=== PATIENT | male | born 1950 | race Caucasian/White ===

== ENCOUNTER → 2016-09-19 | Outpatient (CLI) | payer OTHER, BC ==
[~2016-09-19] MED LIST: LOSA1TAB38 PO; simvastin PO
--- NOTE | 2016-09-19 11:12 | DIAGNOSTIC IMAGING REPORT ---
CHEST 2 VIEWS ROUTINE CLINICAL HISTORY: R91.1 lung nodule COMPARISON STUDY: 01/26/2012 FINDINGS: The bones soft tissues and hemidiaphragms are normal. The cardiomediastinal silhouette is normal. The lungs are clear. The pulmonary vasculature is normal. IMPRESSION: Negative chest. The above report was generated using voice recognition software. It may contain grammatical, syntax or spelling errors. Electronically signed by: Pérez Gu M.D. 09/19/2016 11:11 AM Dictated Date/Time: 09/19/2016 11:10 AM
--- NOTE | 2016-09-20 07:49 | DIAGNOSTIC IMAGING REPORT ---
PELVIS NO IV/ORAL CONT (CT) CLINICAL HISTORY: LOWER LEFT ABD PAIN pain TECHNIQUE: COMPARISON STUDY: 04/29/2013 FINDINGS: Chronic sigmoid diverticulosis. Moderate wall thickening. No evidence for infiltrative change of the pericolonic fat. No evidence for acute diverticulitis. Bowel pattern within the pelvis is nonobstructive. Normal-appearing appendix. No significant pelvic or inguinal adenopathy. Mild chronic descending colonic diverticulosis. IMPRESSION: 1. Chronic diverticulosis of the sigmoid and distal descending colon. 2. No evidence for acute diverticulitis. 3. Study is otherwise negative. The above report was generated using voice recognition software. It may contain grammatical, syntax or spelling errors. Electronically signed by: Pérez Gu M.D. 09/19/2016 11:58 AM Dictated Date/Time: 09/19/2016 11:55 AM
== END | disposition home or self-care (01) ==
LOC: C.CTS 10:18
PROVIDERS: ATTEND Family Medicine
DX: R91.1 Solitary pulmonary nodule (principal)

== ENCOUNTER → 2016-10-31 | Outpatient (CLI) | payer OTHER, BC | END | disposition home or self-care (01) | LOC: C.RDSM 15:59 | PROVIDERS: ATTEND Physical Medicine & Rehabilitation Sports Medicine | DX: M79.641 Pain in right hand (principal) ==

== ENCOUNTER → 2017-01-03 | Day surgery (SDC) | payer OTHER, BC ==
[2016-12-08 11:26] VITALS: Ht 188 cm; Wt 95.5 kg
[~2017-01-03] VITALS: Ht 188 cm; Wt 95.5 kg
[~2017-01-03] MED LIST changes: +ASPI1TAB83 PO; +ATOR-22 PO; +ATROPINE SULFATE 0.1 MG/ML 5ML SYR IV PRN; +BUPIVACAINE 0.5 % 5 MG/1 ML PF 10ML VIAL ONE; +CEFAZOLIN 2000MG IV PUSH 10 ML IV SCH; +COEN1CAP37 PO; +DEXAMETHASONE SOD INJ 4 MG/ML VIAL ONE; +EpHEDrine SULFATE INJ 50 MG/ML AMP IV PRN; +FENTANYL CITRATE INJ 50 MCG/1 ML 2 ML VIAL IV PRN; +FENTANYL CITRATE INJ 50 MCG/1 ML 2 ML VIAL ONE; +HYDROCODONE/ACETAMOPHEN 5/325MG TAB PO PRN; +LACTATED RINGER'S 1000ML 1,000 ML IV SCH; +LIDOCAINE HCL 2% 2 ML VIAL (20MG/ML) ONE; +LIDOCAINE HCL 2% LOCAL 20 ML VIAL ONE; +MIDAZOLAM HCL 1 MG/ML 2ML VIAL ONE; +ONDANSETRON INJ 2 MG/ML 2 ML VIAL IV PRN; +ONDANSETRON INJ 2 MG/ML 2 ML VIAL ONE; +PROPOFOL IV EMULSION 10 MG/ML 20 ML VIAL IV ONE; +SODIUM CHLORIDE 0.9% 1000ML 1,000 ML IV SCH; -simvastin PO
--- NOTE | 2017-01-03 06:46 | History & Physical Bridge Note ---
H&P Re-Evaluation Bridge Note: I have examined the patient, reviewed the History & Physical and in the interval since the performance of the History & Physical I have noted the following changes of clinical significance: consent reviewed.No changes noted
--- NOTE | 2017-01-03 06:48 | Discharge Instructions ---
Discharge Instructions Date of Service Jan 03, 2017. Visit Reason for Visit: Right Palmar Ring Finger Dupuytren's Discharge Discharge Diagnosis / Problem: same Discharge Goals Goal(s): Improve function Medications Stopped Medications Name(s): na Restart Stopped Medication(s): use all scripts as directed Activity Recommendations Activity Limitations: as noted below Lifting Limitations: until after follow-up appointment Exercise/Sports Limitations: until after follow-up appointment May Resume Sexual Activity: when tolerated Shower/Bathe: keep incision dry Anesthesia . Post Anesthesia Instructions: If you have had General Anesthesia or IV Sedation: * Do not drive today. * Resume driving when surgeon permits. * Do not make important decisions or sign legal documents today. * Call surgeon for: 1. Temperature elevations greater than 101 degrees F. 2. Uncontrollable pain. 3. Excessive bleeding. 4. Persistent nausea and vomiting. 5. Medication intolerance (nausea, vomiting or rash). * For nausea and vomiting use only clear liquids such as: tea, soda, bouillon until nausea subsides, then gradually increase diet as tolerated. * If you have any concerns or questions, call your surgeon's office. If physician is unavailable and it is an emergency, call 911 or go to the nearest emergency room. . Instructions / Follow-Up Instructions / Follow-Up The following are instructions to follow after minor hand surgery. ACTIVITY RECOMMENDATIONS: * Minimize activity until your first visit after surgery. * No excessive walking, jogging, sports or laboring. * Return to activity is individualized. Most patients are able to return to everyday activities within 2 weeks. * Return to sports or intensive labor usually occurs at 1-2 months. * DRIVING: Driving may be resumed when you feel you have adequate pain control and use of the hand. * BATHING: You may shower or sponge-bathe immediately after surgery. The dressing will need to be covered with a plastic bag or plastic wrap until the dressing is changed on the fourth or fifth day after surgery. Once the dressing has been changed on the fourth or fifth day after surgery, you may shower and get the incision wet. * Wash with regular soap and water. * Do not bathe (submerge the incision), soak, swim or use a hot tub until the incision is completely healed over with normal skin and the doctor has given the OK to proceed. * There is no need to apply any ointments, powders or salves to your incision. * Do not apply alcohol or hydrogen peroxide directly to the incision. Diluted peroxide (50:50 mixture with sterile saline) may be used to clean dried blood from around the incision area. WORK/SCHOOL: * You may return to sedentary work or school when you are feeling comfortable. This is usually 3-7 days after surgery. * Expect increased discomfort with increased activity. Continue to elevate and ice the hand as much as possible. DIET: * Resume previous diet. MEDICATIONS: * You will have a prescription for pain medication and an anti-inflammatory medication after surgery. Use the pain pills for severe pain and the anti-inflammatory for less severe pain. * Once the pain pills have run out, try to use the anti-inflammatory. If this is not effective then contact the office for assistance. * The pain medication may cause nausea, constipation and sleepiness. You should see how they affect you before driving or similar activity. * The anti-inflammatory may cause stomach upset and bleeding. If this occurs, let your doctor know immediately . * Some patients may need blood clot prevention. This can be done with either a pill or a simple shot. Your doctor will advise you on when to begin these medications and how to take them. * Do not take aspirin or other anti-inflammatory products (i.e. Advil or Aleve ) if taking blood thinner medication. * Take a stool softener like Colace or a stimulant like Senokot to prevent constipation. SPECIAL CARE INSTRUCTIONS: ICE: * Do not apply ice directly to the skin. * Use a thin dressing or stockinet between the skin and ice bag. The dressing in place after surgery will suffice. * Apply ice for 20-30 minutes and repeat every 2-4 hours. This is especially important for the first 3-7 days after surgery. * Once the pain improves, use ice as needed. ELEVATION: * Keep your hand elevated at or above the level of your heart as much as possible. * Expect some increased discomfort and swelling if you allow your hand to hang down for any length of time. DRESSING: * Your dressing will be changed 4-5 days after surgery by the physical therapist or physician's general surgery physician assistant. Leave your dressing intact until this time. * You may then change your dressing daily with clean dry gauze or Band-aids and a soft wrap or stockinet. * Always wash your hands prior to touching the incision area. * Once the stitches are removed, you may leave the wound open to air or cover with a thin bandage. * There is no need to apply any ointments, powders or salves to your incision. * Expect some bloody drainage for the first few days after surgery. * Leave the tape strips in place (if present) for 5-7 days. * The initial dressing after surgery may become soaked with blood or fluid which is normal. You may reinforce your dressing with clean, dry gauze as needed. BRACE: * Bracing is generally not needed after routine hand surgery. THERAPY: * Physical therapy may be prescribed after your surgery. * For carpal tunnel and trigger digit surgery you may begin moving your fingers and wrist immediately after surgery as tolerated. * Be careful to not overuse. * Once the sutures are removed, further range of motion exercises can be performed. * Hand incisions may be very sensitive for a few months after surgery so avoid excessive pressure on the incision. If necessary, use a padded weightlifters' glove. * You may massage the incision with skin cream to make it less sensitive and reduce scarring. * Hand strength usually returns with normal use. * If needed, squeezing a soft sponge or Play-dough may help. * Your doctor will recommend physical therapy if necessary. PROBLEMS/QUESTIONS: * If you have any problems such as severe pain, numbness, tingling or high fevers or if you have any questions, please contact the office at [phone]. * It is not uncommon to have some numbness and tingling after the surgery especially if you have had a nerve block done. This should gradually improve over the first 1- 2 days. If this persists longer or worsens then contact the office. FOLLOW UP VISIT: * If not already scheduled, please call the office at to schedule follow-up appointments for approximately 10 days, 6 weeks and 3 months after surgery. Diet Recommendations Recommended Home Diet: resume previous diet Procedures Procedures Performed: see op note/palmar fasciectomy Pending Studies Studies pending at discharge: yes List of pending studies: palmar fascia Medical Emergencies . Who to Call and When: Medical Emergencies: If at any time you feel your situation is an emergency, please call [phone] immediately. . Non-Emergent Contact Non-Emergency issues call your: Specialist Call Non-Emergent contact if: temperature is above 101.5, wound has increased drainage, wound has increased redness, wound has increased pain . . "Provider Documentation" section prepared by Tavo Pleitez. .
--- NOTE | 2017-01-03 07:54 | [facility] Post Operative Brief Note ---
Immediate Operative Summary Operative Date Jan 03, 2017. Pre-Operative Diagnosis Right hand Dupuytren's disease of the palm and ring finger Post-Operative Diagnosis Same Procedure(s) Performed Right Hand Open Dupuytren's Contracture Release Surgeon Make Up Editor Surgeon(s) Melo Rios PA-C Estimated Blood Loss Minimal Findings dupuytrens Fluids (cc crystalloids) 1200cc Specimens A. Right hand Dupuytren's contracture Drains none Anesthesia LMA/block Complication(s) None Disposition Recovery Room / PACU
--- NOTE | 2017-01-03 08:09 | OPERATIVE REPORT ---
DATE OF OPERATION: 01/03/2017 SURGEON: Tavo Pleitez MD SKIN DIVING TEACHER: Edward Rios PA-C. No resident or fellow available. PREOPERATIVE DIAGNOSIS: Dupuytren's disease, right palm with involvement of the fourth ray including metacarpophalangeal and proximal interphalangeal joint. POSTOPERATIVE DIAGNOSIS: Same. OPERATION PERFORMED: Fasciectomy fourth ray including MCP joint and the PIP joint. PERIOPERATIVE SITUATION: Medically cleared male with intractable flexing of the finger, wants to proceed with surgical treatment. At this point in time, he has received full consent including digital nerve injury. OPERATION: The patient appropriately identified, site verified, consent verified, 2 grams of Ancef confirmed as being given. The right upper extremity was prepped and draped in usual routine fashion. A zigzag incision was then made based over the fourth ray Dupuytren's disease going down to the middle phalanx. Full-thickness flaps raised. Care taken to protect the neurovascular bundles. These were identified proximal and distal to the disease and then the disease released with good tension and detail to the neurovascular pedicles. A complete fasciectomy was performed. The MP joint and PIP joint then straightened out easily. The wound was then irrigated. The wound was then closed with horizontal and simple mattress 3-0 nylon suture, dressed appropriately. The patient transferred to recovery room in satisfactory condition having tolerated the procedure well. Estimated blood loss trace. Crystalloid 1200 mL. No DVT prophylaxis required. MP flexion contracture was 25 degrees and PIP flexion contracture was 15 degrees. They were all eliminated with the procedure. I attest to the content of the Intraoperative Record and any orders documented therein. Any exception s are noted below.
[2017-01-03 08:42] VITALS: TEMP 36.3
--- NOTE | 2017-01-03 09:01 | Anesthesia Progress Nt - [facility] ---
Anesthesia Post Op Note Date & Time Jan 03, 2017 at 09:01 Vital Signs Pain Intensity: 3 Vital Signs Past 12 Hours Date Time Temp Pulse Resp B/P (MAP) Pulse Ox O2 Delivery O2 Flow Rate FiO2 01/03/17 08:42 36.3 63 16 148/81 (103) 99 Room Air 01/03/17 08:34 36.4 60 143/86 98 Room Air 01/03/17 08:27 62 16 97 01/03/17 08:27 61 16 01/03/17 08:26 137/83 01/03/17 08:22 73 15 01/03/17 08:22 74 15 100 01/03/17 08:21 130/72 01/03/17 08:17 56 15 01/03/17 08:17 57 15 100 01/03/17 08:16 124/71 01/03/17 08:12 57 15 01/03/17 08:12 56 15 100 01/03/17 08:11 131/67 01/03/17 08:07 56 14 99 01/03/17 08:07 56 14 01/03/17 08:06 105/66 01/03/17 08:02 59 12 01/03/17 08:02 59 12 99 01/03/17 08:01 57 12 01/03/17 08:01 57 12 116/66 99 01/03/17 07:57 118/69 01/03/17 07:56 63 01/03/17 07:56 36.6 62 16 118/69 97 Mask 01/03/17 07:56 63 96 01/03/17 06:31 36.4 65 18 164/87 (112) 97 Room Air Notes Mental Status: alert / awake / arousable, participated in evaluation Pt Amnestic to Procedure: Yes Nausea / Vomiting: adequately controlled Pain: adequately controlled Airway Patency, RR, SpO2: stable & adequate BP & HR: stable & adequate Hydration State: stable & adequate Anesthetic Complications: no major complications apparent
[2017-01-03 09:06] VITALS: BP 154/88; O2SAT 98
--- NOTE | 2017-01-03 13:25 | [facility] Operative Report ---
Operative Report Operative Date Jan 03, 2017. Pre-Operative Diagnosis Right hand Dupuytren's disease of the palm and ring finger Post-Operative Diagnosis Same Procedure(s) Performed Right Hand Open Dupuytren's Contracture Release Surgeon Mold Swabber Surgeon(s) Melo Rios PA-C Estimated Blood Loss Minimal Findings Dupuytren's disease of the palm and ring finger right hand Fluids (cc crystalloids) 1200cc Specimens A. Right hand Dupuytren's contracture Drains none Complication(s) None Disposition Recovery Room / PACU Indications This 66-year-old white male presented to the office with complaints of flexion contracture of his right ring finger extending into the palm. He was having difficulty extending the finger. He had tried conservative care measures without success. Patient elected to proceed with surgical intervention after being educated about potential risks and outcomes. Preoperative imaging was obtained. Description of Procedure Patient was taken to the operating room where he was given regional anesthetic and general anesthetic. He was prepped and draped in usual sterile fashion. Please see Dr. Pleitez's operative report for specifics of the procedure. I was present for the entire case from initial patient positioning through final wound closure. Assistance was provided in tissue traction, hemostasis, and final wound closure. Patient was taken to the recovery room in satisfactory condition. I attest to the content of the Intraoperative Record and any orders documented therein. Any exceptions are noted below.
== END | disposition home or self-care (01) ==
LOC: X.SURG 06:11
PROVIDERS: ATTEND Physical Medicine & Rehabilitation Sports Medicine
DX: M72.0 Palmar fascial fibromatosis [Dupuytren] (principal); I10 Essential (primary) hypertension; E78.00 Pure hypercholesterolemia, unspecified; K21.9 Gastro-esophageal reflux disease without esophagitis; N40.0 Benign prostatic hyperplasia without lower urinary tract symptoms; E88.81 Metabolic syndrome and other insulin resistance; M54.12 Radiculopathy, cervical region; Z79.82 Long term (current) use of aspirin; Z79.899 Other long term (current) drug therapy